=== PATIENT | male | born 1970 | race Caucasian/White ===

== ENCOUNTER 2016-09-27 16:55 | Emergency (ER) | payer OTHER ==
[~2016-09-27] VITALS: Ht 172.7 cm; Wt 95.5 kg
[2016-09-27] MEDS ORDERED: 0.9% Sodium Chloride 1,000 ML IV ONE (17:12)
--- NOTE | 2016-09-27 17:12 | ED.REPORT ---
HPI-General Illness Date of Service Sep 27, 2016 ED Provider: Ralph Mclean MD A 46 year old male with a family history of cardiac disease presents to the ED via EMS following an episode of SOB that occurred this morning. His SOB has since resolved but has been associated with recent fatigue. Patient is asymptomatic upon repeat examination. He was sent by his PCP for further workup after concerning EKG results. He denies any chest pain, syncope, hematochezia, hematuria, abdominal pain, constipation, diarrhea, fevers, chills, nausea, vomiting or headache. He reports family history of CO and triple bypass. Nursing Notes Stated Complaint: SOB, FATIGUE Nursing Notes Reviewed: Yes Allergies: Coded Allergies: No Known Allergies (Unverified , 09/27/16) General Time Seen by MD: 17:08 Chief Complaint Other (SOB) Hx Obtained From: Patient Arrived By: Ambulance Sudden in Onset?: No Onset Occurred: 9 - 12 hours ago Symptom Duration: Since onset Associated with: Reports: Shortness of breath, Denies: Abdominal pain, Chest pain, Fever, Nausea, Vomiting Pertinent Negative: Pt denies other symptoms Recent Healthcare: No recent doctor visit, No recent hospitalization Past Medical History Past Medical History Denies Past Surgical History None reported. Family History CO Triple bypass Smoking History Never Smoker Social History Other Social History: Good social support, Local resident Ambulatory Status Independent Review of Systems Full Review of Systems Constitutional: Reports: Fatigue, Denies: Chills, Fever Respiratory: Reports: Shortness of breath Cardiovascular: Denies: Chest pain GI: Denies: Abdominal pain, Constipation, Diarrhea, Hematochezia, Nausea, Vomiting Male: Denies Hematuria Neurologic: Denies: Headache, Syncope Complete sys rev & neg: except as marked. Physical Exam Nursing note and vitals reviewed. Constitutional: Well-developed, well-nourished. Not diaphoretic. Head: Normocephalic and atraumatic. Mouth/Throat: Oropharynx is clear and moist. No oropharyngeal exudate. Eyes: EOM are normal. Pupils are equal, round, and reactive to light. Neck: Supple, no tracheal deviation. Cardiovascular: Normal rate, regular rhythm. Equal and intact distal pulses throughout. Pulmonary/Chest: Effort normal and breath sounds normal. No respiratory distress. Abdominal: Soft. No distension. There is no tenderness, rebound, or guarding. Musculoskeletal: Range of motion grossly intact, moving all extremities. No edema or tenderness appreciated. Neurological: AOx3. Grossly nonfocal exam. Strength and sensation intact and equal to bilateral upper and lower extremities. Skin: Warm and dry, no rashes or pallor appreciated. Psychiatric: Appropriate mood and affect. Behavior appears normal. Vital Signs Vital Signs Date Time Temp Pulse Resp B/P Pulse Ox O2 Delivery O2 Flow Rate FiO2 09/27/16 20:24 36.8 58 12 127/86 98 Room Air 09/27/16 17:15 36.6 54 15 130/95 95 Room Air Interpretation & Diagnostics Lab Results Interpretation Result Diagram: 09/27/16 1802 09/27/16 1802 Test 09/27/16 18:02 White Blood Count 7.3th/mm3 (3.8-10.1) Red Blood Count 4.47mil/mm3 (4.40-5.80) Hemoglobin 13.9g/dL (13.8-17.2) Hematocrit 38.9% (41.0-50.0) Mean Corpuscular Volume 87.0fL (81-100) Mean Corpuscular Hemoglobin 31.1pg (27.0-35.0) Mean Corpuscular Hemoglobin Concent 35.7% (32.0-37.0) Red Cell Distribution Width 12.7% (12.3-15.4) Platelet Count 253bil/L (150-400) Neutrophils (%) (Auto) 58.8% (40-74) Lymphocytes (%) (Auto) 26.9% (14-46) Monocytes (%) (Auto) 8.1% (4-12) Eosinophils (%) (Auto) 4.8% (0-5) Basophils (%) (Auto) 0.7% (0-3) Prothrombin Time 10.3sec (8.1-12.5) Prothromb Time International Ratio 0.96ratio Activated Partial Thromboplast Time 27.1sec (22.8-33.0) Sodium Level 140mEq/L (134-144) Potassium Level 3.9mEq/L (3.5-5.2) Chloride Level 105mEq/L (97-108) Carbon Dioxide Level 21mmol/L (18-29) Blood Urea Nitrogen 17mg/dL (6-24) Creatinine 1.17mg/dL (0.76-1.27) Estimat Glomerular Filtration Rate 72mL/min (>59) Glucose Level 85mg/dL (60-99) Calcium Level 8.7mg/dL (8.5-10.1) Magnesium Level 1.9mg/dL (1.6-2.6) Total Bilirubin 0.3mg/dL (0.0-1.2) Aspartate Amino Transf (AST/SGOT) 16U/L (0-50) Alanine Aminotransferase (ALT/SGPT) 16U/L (0-44) Alkaline Phosphatase 85U/L (25-150) Troponin T < 0.010ug/L (0.0-0.011) Total Protein 6.5g/dL (6.4-8.4) Albumin 3.6g/dL (3.4-5.0) Hold Mueller Top Tube Received (Received) ECG Interpretation ECG Interpretation: Sinus rhythm Rate 59 Inverted T waves in lateral leads No prior for comparison Time: 17:07 Interpreted by: ED physician X-Ray Chest Interpretation Chest Xray Interpretation: IMPRESSION: No acute process. Dictated by: Neil Mckay M.D. on 09/27/2016 at 17:33 Interpretation / Wet Read by: Interpret - Radiologist Re-Eval/Medical Decision Med Decision/Clinical Course In summary, 46-year-old male presenting to the ED for evaluation after being sent by his primary care physician when it was noted that he had some inverted T waves in the lateral leads of his EKG. He had some transient dyspnea earlier today, since resolved. He has no symptoms right now whatsoever. Has not had any chest pain recently either. He does have some inverted T waves in V5 and V6 and a biphasic-appearing T waves in V4. Chest x-ray negative for any acute abnormalities. CBC, CMP, coags all within normal limits. Troponin negative. Discussed with cardiology on-call, who recommended an outpatient stress test to be ordered by his primary care provider, however no further intervention at this time. Given that he is symptom-free, this seems reasonable. Discussed at length with the patient, who is agreeable with the plan as stated, no further questions. Time of Eval: 19:54 Re-Evaluation/Progress Note: SOB has resolved. He is informed of his results and diagnosis. All questions about the intended treatment plan are addressed. He understands and agrees with the plan. Consultation : Referral / Consult Name: Jersey Trujillo MD Consulted With: Cardiology Call Returned at: 19:56 Bulb Brander: Agrees with eval, Agrees with plan Note: Recommends outpatient stress test. Counseled Regarding: Diagnosis, Lab results, Need for follow-up, When/why to return to ED Discharge & Departure Primary Impression: Shortness of breath Disposition: Home Discharge Condition All VS Reviewed: Yes Condition: Stable Patient Instructions: Shortness of Breath (ED) Additional Instructions: Thank you for trusting us with your care this afternoon. Your emergency department results taken all together, including examination, lab work, EKG and chest X-ray, are reassuring that there's no emergent cause for concern today. However, a clear cause of your symptoms was not identified. Please schedule a follow up appointment with your primary care physician tomorrow for a recheck. As we discussed, after talking the end finder forming department here, I would recommend that you discuss having your doctor schedule an outpatient nuclear medicine cardiac stress test as soon as able. Please return to the emergency department for any new or worsening symptoms including any nausea, vomiting, abdominal pain, worsening shortness of breath, chest pain, one sided weakness/numbness, high fevers, or shaking chills, or if there's anything else of concern to you. Referrals: Jersey Trujillo MD [facility] Scribe Attestation Portions of this note were transcribed by Sean Arevalo. I, Dr. Mclean personally performed the history, physical exam and medical decision-making; I reviewed and confirmed the accuracy of the information in the transcribed note. Signed by: Mary Anne Campbell, 09/27/161958. Ralph Mclean MD Sep 27, 2016 17:12 SEAN AREVALO Sep 27, 2016 17:18
[2016-09-27 17:15] VITALS: BP 130/95; PULSE 54; RESP 15; O2SAT 95
--- NOTE | 2016-09-27 17:36 | DRSVH ---
PROCEDURE: X-RAY CHEST ONE VIEW, PORTABLE ([id number]) INDICATIONS: dyspnea TECHNIQUE: One view of the chest was acquired. COMPARISON: None. FINDINGS: Surgical changes and devices: None. Lungs and pleura: No pleural effusions or pneumothorax. Lungs are clear. Mediastinum: Mediastinal contours appear normal. Heart size is normal. Bones and chest wall: No suspicious bony lesions. Overlying soft tissues appear unremarkable. IMPRESSION: No acute process. Dictated by: Neil Mckay M.D. on 09/27/2016 at 17:33 Approved by: Neil Mckay M.D. on 09/27/2016 at 17:34
[2016-09-27 18:14] LABS: BASOPHILS % (AUTO) 0.7 % (0-3); EOSINOPHILS % (AUTO) 4.8 % (0-5); MONOCYTES % (AUTO) 8.1 % (4-12); Mean Corpuscular Hemoglobin 31.1 pg (27.0-35.0); NEUTROPHILS % (AUTO) 58.8 % (40-74); Platelet Count 253 bil/L (150-400)
[2016-09-27 18:28] LABS: INR 0.96 ratio
[2016-09-27 18:45] LABS: Magnesium 1.9 mg/dL (1.6-2.6); TROPONIN T < 0.010 ug/L (0.0-0.011)
[2016-09-27 20:24] VITALS: BP 127/86; PULSE 58; RESP 12; O2SAT 98
== END 2016-09-27 20:25 | disposition home or self-care (01) ==
LOC: SED 16:55 → EDBD 16:55 → SED 20:25
DX: R06.02 Shortness of breath (principal); R53.83 Other fatigue; K21.9 Gastro-esophageal reflux disease without esophagitis; F17.200 Nicotine dependence, unspecified, uncomplicated
CPT/HCPCS: 36415; 71010; 80053; 83735; 84484; 85025; 85610; 85730; 93005; 96360; 99285; J7030